=== PATIENT | male | born 1935 | race American Indian/Alaskan Native ===

== ENCOUNTER 2019-08-24 07:45 | Day surgery (SDC) | payer MEDICARE, OTHER ==
[~2019-08-24 07:45] MED LIST: LACTATED RINGERS 1,000 ML IV SCH
[2019-08-24] MEDS ORDERED: fentaNYL 100 MCG/2 ML INJ IV PRN (09:21)
--- NOTE | 2019-08-24 09:25 | Anesthesia Consultation ---
Anesthesia Consult and Med Hx Date of service: 08/24/19 - Airway Anesthetic Teeth Evaluation: Good ROM Head & Neck: Inadequate (restricted extension) Mental/Hyoid Distance: Adequate Mallampati Class: Class II Intubation Access Assessment: Probably Good - Pulmonary Exam CTA: Yes - Cardiac Exam Cardiac Exam: RRR - Pre-Operative Health Status ASA Pre-Surgery Classification: ASA3 Proposed Anesthetic Plan: General - Pulmonary Hx Smoking: Yes (former smoker quit 40yrs ago) Hx Respiratory Symptoms: No COPD: No Hx Sleep Apnea: Yes (no CPAP) - Cardiovascular System Hx Hypertension: Yes Hx Coronary Artery Disease: Yes (took carvedilol this morning; follows with cardiology) Hx Heart Attack/AMI: No Hx Percutaneous Transluminal Coronary Angioplasty (PTCA): No Hx Pacemaker: Yes (patient unsure of indication) Hx Internal Defibrillator: Yes - Central Nervous System CVA: No Hx Psychiatric Problems: Yes (memory impairment) - Gastrointestinal Hx Gastroesophageal Reflux Disease: No - Endocrine Hx Renal Disease: No Hx Liver Disease: No Hx Insulin Dependent Diabetes: No Hx Non-Insulin Dependent Diabetes: No Hx Hypothyroidism: Yes - Other Systems Hx Cancer: Yes (prostate ca) Hx Obesity: No - Additional Comments Anesthesia Medical History Comments: No hx anesthetic complications. Medical hx obtained in part from patient's son at bedside. No signs/symptoms decompensated HF on exam. Denies SOB/chest pain in recent months. Preop EKG ordered as no cardiac records in chart in last 5 yrs. V-paced rhythm at rate 80bpm.
--- NOTE | 2019-08-24 09:25 | Anesthesia Day of Surgery ---
Anesthesia Day of Surgery - Day of Surgery Patient Examined: Yes Patient H&P Reviewed: Yes Patient is NPO: Yes Beta Blockers: Yes (carvedilol this morning)
[2019-08-24] MEDS ORDERED: GENTAMICIN/NS 80 MG/100 ML 100 ML IV ONE ×2 (09:53→09:57)
[2019-08-24] MEDS ORDERED: ceFAZolin/STERILE WATER 2 GM/20 ML SYRINGE IV NR (10:00)
[2019-08-24] MEDS ORDERED: LIDOCAINE MPF (2%) 20 MG/1 ML VIAL 5 ML ONE (11:38)
[2019-08-24] MEDS ORDERED: HYDROmorphone 1 MG/1 ML INJ ONE (11:38)
[2019-08-24] MEDS ORDERED: propofoL 200 MG/20 ML VIAL IV ONE (11:38)
[2019-08-24] MEDS ORDERED: PHENYLEPHRINE/NS 1,000 MCG/10 ML SYRINGE (OR USE) IV ONE (12:38)
[2019-08-24] MEDS ORDERED: METHYLENE BLUE 50 MG/10 ML AMP ONE (12:49)
[2019-08-24] MEDS ORDERED: SODIUM CHLORIDE 0.9% IRR 1,500 ML BOTTLE IR ONE (13:00)
[2019-08-24] MEDS ORDERED: WATER FOR IRRIG STERILE 2000 ML IR ONE (13:01)
[2019-08-24] MEDS ORDERED: FUROSEMIDE 40 MG/4 ML INJ ONE (13:11)
[2019-08-24] MEDS ORDERED: ONDANSETRON 4 MG/2 ML INJ ONE (13:45)
--- NOTE | 2019-08-24 14:12 | Operative Report ---
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 PROCEDURE: Flexible cystoscopy, removal of artificial urinary sphincter, removal of the cuff, insertion of Khan catheter, drainage of abscess. SURGEON: Dr. Duckworth. ANESTHESIA: General. FINDINGS: This is a gentleman who had a sphincter for 6 years. It was in after 2 failed ones in [place]. He had a fall and catheter was placed because he did not have any ID on his band. The catheter was left a month. He now has erosion from the scrotum with abscess. DESCRIPTION OF PROCEDURE: The patient was brought to the operating room and placed on the operating table. Following induction of anesthesia, placed in the supine position, prepped and draped in the usual sterile fashion. We could see the tubing coming out the scrotum. A trans-scrotal horizontal incision was made, carried down to the tubing. The tubing was brought from within and we dissected down to the cuff. Flexible cystoscopy showed erosion with closure of the urethra. We could not get a wire safely into the urethra. We emptied out all the fluid, still could not get a wire, so we took the cuff off and with the open incision got a wire through the open incision with an open-ended catheter and threaded back through the meatus. We placed an open-ended catheter, we irrigated within the bladder. At that point, eventually Councill catheter was placed. We tracked the tubing to the left groin and an incision was made and the reservoir was delivered. The patient tolerated the procedure well. The wounds were irrigated and the reservoir site was closed with 2-0 and 3-0 Vicryl, skin with clips. The urethra was approximated with four sutures of 2-0 Vicryl, superficial fascia with 2-0 and 3-0 Vicryl and chromic with a half-inch Niko through the previous eroded site. The patient tolerated the procedure well and brought to recovery in stable condition. JOB# [id number] [place]
[2019-08-24] MEDS ORDERED: LIDOCAINE-MPF (1%) 10 MG/1 ML VIAL 5 ML INFILTRATI ONE (14:42)
--- NOTE | 2019-08-24 14:42 | Post Operative Note ---
Date of procedure: 08/24/19 Pre-op diagnosis: scrotal abcess Post-op diagnosis: same Findings: i and d removal eroded aus Procedure: as abover plus cysto Anesthesia: GETA Estimated blood loss: minimal Pathology: list (aus) Specimen disposition: to lab Condition: stable Disposition: PACU
--- NOTE | 2019-08-24 14:44 | Discharge Summary ---
Short Stay Discharge Plan Activity: other (no straining ) Weight Bearing Status: Partial Weight Bearing Diet: low fat, low cholesterol, low salt Wound: change dressing Special Instructions: home health RN (get for wound care ), other (teach dressi ng change ) Follow up with: SRINATH CONTRERAS MD [Primary Care Provider] - 7 Days KERRY DAVIS MD [Staff Physician] - 7 Days
--- NOTE | 2019-08-24 15:06 | Post Anesthesia Evaluation ---
- Post Anesthesia Evaluation Patient Participated: Yes Airway Patent: Yes Stable Respiratory Function: Yes Nausea/Vomiting: No Temp > 96.8F: Yes Pain Manageable: Yes Adequeate Hydration: Yes Anesthesia Complications: No
[2019-08-24 16:47] VITALS: BP 110/70
== END 2019-08-24 17:00 | disposition home or self-care (01) ==
LOC: OR 07:45
PROVIDERS: ATTEND Urology
DX: T83.191A Other mechanical complication of implanted urinary sphincter, initial encounter (principal); I42.9 Cardiomyopathy, unspecified; I11.0 Hypertensive heart disease with heart failure; I50.9 Heart failure, unspecified; I25.10 Atherosclerotic heart disease of native coronary artery without angina pectoris; E78.00 Pure hypercholesterolemia, unspecified; G47.30 Sleep apnea, unspecified; K21.9 Gastro-esophageal reflux disease without esophagitis; M06.9 Rheumatoid arthritis, unspecified; E03.9 Hypothyroidism, unspecified; F41.9 Anxiety disorder, unspecified; Z82.5 Family history of asthma and other chronic lower respiratory diseases; Z98.42 Cataract extraction status, left eye; Z98.41 Cataract extraction status, right eye; Z95.0 Presence of cardiac pacemaker; Z98.890 Other specified postprocedural states; Z79.899 Other long term (current) drug therapy; Z79.82 Long term (current) use of aspirin; Z87.891 Personal history of nicotine dependence; Z85.46 Personal history of malignant neoplasm of prostate; Z96.643 Presence of artificial hip joint, bilateral; Z80.8 Family history of malignant neoplasm of other organs or systems; Z82.61 Family history of arthritis; Y83.8 Other surgical procedures as the cause of abnormal reaction of the patient, or of later complication, without mention of misadventure at the time of the procedure; Y92.89 Other specified places as the place of occurrence of the external cause
CPT/HCPCS: 36415; 52000; 53446; 84132; 87075; 87116; 88302; 93005; A4217; C1758; C1769; J0690; J0696; J1170; J1580; J1940; J2370; J2405; J2704; J7120; Q9968